=== PATIENT | male | born 1955 | race Caucasian/White ===

== ENCOUNTER 2023-01-12 08:42 | Emergency (ER) | payer MEDICAID, MEDICARE | END 2023-01-12 09:34 | disposition home or self-care (01) | LOC: JP.ED 08:42 | DX: S76.311A Strain of muscle, fascia and tendon of the posterior muscle group at thigh level, right thigh, initial encounter (principal); I25.10 Atherosclerotic heart disease of native coronary artery without angina pectoris; I10 Essential (primary) hypertension | CPT/HCPCS: 99283 ==